=== PATIENT | female | born 1970 | race Asian ===

== ENCOUNTER 2016-06-14 19:26 | Emergency (ER) | payer OTHER ==
[~2016-06-14] VITALS: Ht 157.5 cm; Wt 52.7 kg
[~2016-06-14 19:26] MED LIST: CEFTIN 250250 MG/TAB PO; CEPHALEXIN500 M1 PO; MACROBID 1100 MG/CAP PO; OMNICEF 300MG300 MG PO; PRENATAL1 TA1 PO; PYRIDIUM200 M1 PO; REGLAN 10MG10 MG/TAB PO; VITAMIN E100 I3
[2016-06-14 19:30] VITALS: BP 120/75; TEMP 99.2
[2016-06-14 19:56] LABS: PH 7 (5-8); SQUAMOUS EPITHELIAL 0-2 /hpf; URINE APPEARANCE Turbid; URINE BACTERIA None Seen /hpf; URINE BILIRUBIN Negative (NEGATIVE); URINE BLOOD 3+ (NEGATIVE); URINE COLOR Yellow; URINE GLUCOSE Negative (NEGATIVE); URINE KETONE Negative (NEGATIVE); URINE RBC >50 /hpf; URINE UROBILINOGEN Negative (NEGATIVE); URINE WBC >50 /hpf
[2016-06-14] MEDS ORDERED: MACROBID 1100 MG/CAP PO (19:56)
[2016-06-14] MEDS ORDERED: PYRIDIUM200 M1 PO (19:56)
[2016-06-14 20:04] VITALS: PULSE 86
== END 2016-06-14 20:05 | disposition home or self-care (01) ==
LOC: COL.ER 19:26
PROVIDERS: Nurse Practitioner
DX: N39.0 Urinary tract infection, site not specified (principal); R31.9 Hematuria, unspecified

== ENCOUNTER 2016-09-27 03:02 | Emergency (ER) | payer OTHER ==
[~2016-09-27] VITALS: Ht 157.5 cm; Wt 55.0 kg
[2016-09-27 03:06] VITALS: TEMP 98.1
[2016-09-27 03:55] LABS: BASO % 0.3 % (0.0-2.0); EOS # 0.1 (0.0-0.7); EOS % 0.9 % (0-4.0); GRAN # 5.9 (1.4-6.5); HEMATOCRIT 36.6 % (37.0-47.0); HEMOGLOBIN 11.8 g/dl (12.5-16.0); LYMPH # 1.2 (1.2-3.4); LYMPH % 15.5 % (20.0-51.0); MEAN CELL VOLUME 83 fl (80.0-100.0); MEAN CORPUSCULAR HEMOGLOBIN 27 pg (27.0-31.0); MEAN CORPUSCULAR HGB CONC 32 g/dl (33.0-37.0); MEAN PLATELET VOLUME 9.5 fl (7.4-10.4); MONO # 0.3 (0.1-0.6); MONO % 3.9 % (1.7-9.3); PLATELET COUNT 216 K/mm3 (130-400); REDCELL DISTRIBUTION WIDTH-CV 13.3 % (11.5-14.5); WHITE BLOOD COUNT 7.5 K/mm3 (4.8-10.8)
[2016-09-27 04:05] LABS: ADJUSTED CALCIUM 8.8 mg/dL (8.4-10.2); ALBUMIN 4.3 gm/dL (3.5-5.0); BILIRUBIN,TOTAL 0.5 mg/dL (0.0-1.0); CREATININE, serum 0.68 mg/dL (0.52-1.25); TOTAL PROTEIN 7.4 gm/dL (6.4-8.2)
[2016-09-27 04:27] LABS: PH 7 (5-8); URINE APPEARANCE Clear; URINE BACTERIA None Seen /hpf; URINE BILIRUBIN Negative (NEGATIVE); URINE BLOOD Negative (NEGATIVE); URINE COLOR Yellow; URINE GLUCOSE Negative (NEGATIVE); URINE KETONE Trace (NEGATIVE); URINE RBC 0-2 /hpf; URINE UROBILINOGEN Negative (NEGATIVE)
[2016-09-27] MEDS ORDERED: NORCO 325 MG-51 TAB PO (07:26)
[2016-09-27 07:34] VITALS: BP 132/72; PULSE 92
== END 2016-09-27 07:35 | disposition home or self-care (01) ==
LOC: COL.ER 03:02
PROVIDERS: Emergency Medicine
DX: N83.201 Unspecified ovarian cyst, right side (principal)
CPT/HCPCS: J2765; J3010; J7030

== ENCOUNTER 2017-06-26 08:58 | Emergency (ER) | payer OTHER ==
[~2017-06-26] VITALS: Ht 157.5 cm; Wt 54.7 kg
[~2017-06-26 08:58] MED LIST changes: +NORCO 325 MG-51 TAB PO
[2017-06-26 09:11] VITALS: BP 118/78; TEMP 98.5
[2017-06-26 09:26] LABS: COLLECTION METHOD CLEAN CATCH
[2017-06-26] MEDS ORDERED: PYRIDIUM200 M1 PO (09:33)
[2017-06-26] MEDS ORDERED: CEPHALEXIN500 M1 PO (09:33)
[2017-06-26 10:23] LABS: PH 6 (5-8); URINE APPEARANCE Hazy; URINE BACTERIA Occasional /hpf; URINE BILIRUBIN Negative (NEGATIVE); URINE BLOOD 3+ (NEGATIVE); URINE COLOR Yellow; URINE GLUCOSE Negative (NEGATIVE); URINE KETONE Negative (NEGATIVE); URINE LEUKOCYTE ESTERASE 3+ (NEGATIVE); URINE NITRATE Negative (NEGATIVE); URINE PROTEIN(semi-quant) Negative (NEGATIVE); URINE UROBILINOGEN Negative (NEGATIVE)
[2017-06-26 10:56] VITALS: PULSE 82
== END 2017-06-26 10:55 | disposition home or self-care (01) ==
LOC: COL.ER 08:58
PROVIDERS: Physician Assistant
DX: N39.0 Urinary tract infection, site not specified (principal); Z87.448 Personal history of other diseases of urinary system

== ENCOUNTER 2017-10-14 02:30 | Emergency (ER) | payer OTHER ==
[~2017-10-14] VITALS: Ht 157.5 cm; Wt 54.5 kg
[2017-10-14 02:31] VITALS: BP 134/82; TEMP 98.2
[2017-10-14 02:54] LABS: COLLECTION METHOD CLEAN CATCH
[2017-10-14 02:57] LABS: BASO % 0.3 % (0.0-2.0); EOS % 0.4 % (0-4.0); GRAN # 5.7 (1.4-6.5); HEMOGLOBIN 11.4 g/dl (12.5-16.0); LYMPH # 0.8 (1.2-3.4); LYMPH % 12.3 % (20.0-51.0); MEAN CELL VOLUME 83 fl (80.0-100.0); MEAN CORPUSCULAR HEMOGLOBIN 27 pg (27.0-31.0); MEAN CORPUSCULAR HGB CONC 33 g/dl (33.0-37.0); MEAN PLATELET VOLUME 9.4 fl (7.4-10.4); MONO # 0.2 (0.1-0.6); MONO % 2.7 % (1.7-9.3); PLATELET COUNT 252 K/mm3 (130-400); REDCELL DISTRIBUTION WIDTH-CV 12.7 % (11.5-14.5)
[2017-10-14 03:05] LABS: ALBUMIN 4.5 gm/dL (3.5-5.0); BILIRUBIN,TOTAL 0.3 mg/dL (0.0-1.0); CREATININE, serum 0.54 mg/dL (0.52-1.25); HEMATOCRIT 34.9 % (37.0-47.0); POTASSIUM 3.7 mmol/L (3.4-5.0); TOTAL PROTEIN 7.9 gm/dL (6.4-8.2)
[2017-10-14 03:12] LABS: MUCOUS Present /lpf; PH 9 (5-8); URINE APPEARANCE Clear; URINE BACTERIA None Seen /hpf; URINE BILIRUBIN Negative (NEGATIVE); URINE BLOOD Negative (NEGATIVE); URINE COLOR Yellow; URINE GLUCOSE Negative (NEGATIVE); URINE KETONE 1+ (NEGATIVE); URINE LEUKOCYTE ESTERASE Trace (NEGATIVE); URINE NITRATE Negative (NEGATIVE); URINE PROTEIN(semi-quant) Negative (NEGATIVE); URINE RBC 0-2 /hpf; URINE UROBILINOGEN Negative (NEGATIVE)
[2017-10-14] MEDS ORDERED: ZOFRAN ODT4 MG PO (04:30)
[2017-10-14] MEDS ORDERED: NORCO 325 MG-51 TAB PO (04:30)
[2017-10-14 04:39] VITALS: PULSE 86
== END 2017-10-14 04:40 | disposition home or self-care (01) ==
LOC: COL.ER 02:30
PROVIDERS: Emergency Medicine
DX: N83.201 Unspecified ovarian cyst, right side (principal); Z87.442 Personal history of urinary calculi; Z98.890 Other specified postprocedural states
CPT/HCPCS: J2765; J3010; J7030; Q9967